=== PATIENT | male | born 1980 | race Hispanic/Latino ===

== ENCOUNTER 2024-03-23 10:05 | Emergency (ER) | payer SELFPAY ==
[2024-03-23 10:06] VITALS: BP 136/100; PULSE 86; RESP 14; TEMP 36.2; O2SAT 98; BMI 16.9
--- NOTE | 2024-03-23 10:30 | RAD_ITS ---
HISTORY: cough. TECHNIQUE: XR Chest 2 Views. COMPARISON: None. FINDINGS: CARDIOMEDIASTINAL BORDERS: Cardiac silhouette within normal limits in size. Mediastinal contour unremarkable with calcification of the aortic knob. LUNGS: Mild left suprahilar opacity. PLEURA: No pleural effusion or pneumothorax seen. OSSEOUS STRUCTURES: Mild degenerative change. RAD/Chest PA and Lateral IMPRESSION: Mild left suprahilar atelectasis or inflammation. Electronically Signed: Bianca Chavis MD at 11:14 EST ,
[2024-03-23] MEDS: 0.9% Normal Saline (1000mL) 1,000 ML 999 ML IV (10:45)
--- NOTE | 2024-03-23 10:58 | EX.ED.DYSGE1 ---
HPI History of Present Illness Chief Complaint: Hyperglycemia Informant: patient Narrative Narrative: Use of third-constitution party title i coordinator was utilized during this evaluation. 44-year-old male history of diabetes hypertension hyperlipidemia presenting to the emergency room with elevated blood sugar. Patient states he went to see his doctor yesterday because he has had pain in his throat as well as phlegm production for about 3 to 4 weeks. States his blood sugar was over 600 and was advised to come to emergency. He denies any fevers. He has been able to eat and drink. No change in voice. He does endorse some urinary frequency and increased thirst particularly in the mornings. He is a non-smoker. He states that his blood sugars are typically around 100. [facility] Medical History HTN (hypertension) Hyperlipemia Diabetes Home Medications ?Medication ?Instructions ?Recorded ?Last Taken ?Type amoxicillin 875 mg-potassium 875 mg PO Q12H #14 TABLETS 03/23/24 Unknown Rx clavulanate 125 mg tablet atorvastatin 20 mg tablet 20 mg PO QHS cholesterol 03/23/24 Unknown History azithromycin 250 mg tablet See Rx Instructions PO .COMPLEX #6 03/23/24 Unknown Rx (Zithromax Z-Jose) tabs flash glucose sensor (FreeStyle 03/23/24 Unknown History Kassie 2 Sensor kit) lisinopril 5 mg tablet 5 mg PO DAILY 03/23/24 Unknown History metformin 500 mg tablet,extended 1,000 mg PO BID 03/23/24 Unknown History release 24 hr Allergy/AdvReac Type Severity Reaction Status Date / Time No Known Allergies Allergy Verified 03/23/24 10:06 Surgical History Hx of appendectomy Social History household members: children current occupational status: employed Smoking Status: Never smoker ROS ROS ED Constitutional Constitutional ED: Denies chills, fever(s) or weight loss Eyes Eyes: Denies change in vision or diplopia ENT ENT ED: Reports sore throat and other Details: Increased thirst ; Denies ear pain or rhinorrhea Cardiovascular Cardiovascular: Denies chest pain, orthopnea, palpitations or racing heartbeat Respiratory/Chest Respiratory/Chest: Reports cough and sputum; Denies dyspnea or orthopnea Gastrointestinal Gastrointestinal: Denies abdominal pain, diarrhea, nausea or vomiting Genitourinary Genitourinary ED: Reports urinary frequency; Denies dysuria or hematuria Musculoskeletal Musculoskeletal: Denies arthralgias or myalgias Integumentary Denies abscess or rash Neurologic Neurologic: Denies headache(s) or weakness Psychiatric Psychiatric: Denies anxiety, depression, suicidal ideation or suicidal thoughts Endocrine Endocrinology: Denies polydipsia, polyphagia or polyuria Allergic/Immunologic Allergic/Immunologic ED: Denies mouth swelling, tongue swelling or urticaria EXAM Physical Exam Const Vital Signs: 03/23/24 10:06 03/23/24 10:47 03/23/24 12:06 Temperature 97.1 F L Temperature Source Temporal Pulse Rate 86 69 Respiratory Rate 14 18 Respiratory Effort Normal Non-Labored Respiratory Pattern Normal Blood Pressure 136/100 H Blood Pressure Mean 112 Pulse Ox 98 97 Oxygen Delivery Method Room Air Room Air Positive well nourished and well developed General Appearance ED: well developed and NAD HEENT Reports normocephalic, head/scalp atraumatic and moist mucous membranes HEENT Narrative: Voice sounds normal. No significant oral pharyngeal erythema or swelling is noted. No palatal petechiae. Handling secretions normally. Eyes PERRL and EOMs intact bilaterally Neck no lymphadenopathy, supple and no JVD Resp normal respiratory effort and clear to auscultation bilaterally Cardio regular rate, regular rhythm and no murmurs GI normal to inspection, nondistended, normoactive bowel sounds and non-tender Palpation: soft Back/Spine no CVA tenderness and normal ROM Extremity normal to inspection General Extremety ED: Negative for edema General Extremity: Negative for edema Neuro oriented x3 and CN's II-XII intact bilaterally Sensorium / Orientation: alert Motor Exam: strength 5/5 throughout Psych mental status grossly normal Mood & Affect: Negative for depressed or tearful Skin no rashes or lesions noted and no wounds MDM MDM MDM Narrative Medical decision making narrative: Differential diagnosis includes but not limited to pharyngitis pneumonia reflux dehydration electrolyte abnormality UTI My independent interpretation of the chest x-ray is possible upper lobe infiltrate on the left. His white count 6.6 hemoglobin 15.8 platelet count of 220. BMP shows a glucose of 327 anion gap of 7 CO2 28 sodium 134 potassium 3.9 LFTs show AST 49 ALT of 119 urinalysis with ketones but no overt infection. I do not see evidence of HONK. Clinically he appears hydrated and can to urged him to continue to drink plenty of fluids to prevent dehydration. I do wonder if the language barrier is playing a role and he is coughing up more phlegm than feeling like it is phlegm directly in the throat. I think that it is reasonable to cover him for pneumonia. Given his comorbidities with the diabetes we will use Augmentin and azithromycin. I do not see that this is a primary exudative pharyngitis. History & Record Review Discussion w/independent historian: Patient Lab Data Attestation: I reviewed the patient's lab results. Labs: Laboratory Results - last 24 hr 03/23/24 03/23/24 10:40 11:45 WBC 6.6 RBC 4.95 Hgb 15.8 Hct 43.7 MCV 88.3 MCH 31.9 MCHC 36.2 H RDW Std Deviation 35.9 RDW Coeff of Tima 11.3 L Plt Count 220 MPV 10.5 Immature Gran % (Auto) 0.800 Neut % (Auto) 63.1 Lymph % (Auto) 24.2 [place] % (Auto) 9.4 Eos % (Auto) 2.0 Baso % (Auto) 0.5 Absolute Neuts (auto) 4.2 Absolute Lymphs (auto) 1.60 Nucleated RBC % 0 Sodium 134 L Potassium 3.9 Chloride 98 Carbon Dioxide 28.0 Anion Gap 7 BUN 11 Creatinine 0.91 Estim Creat Clear Calc 77.86 Est GFR (MDRD) Af Amer 115 Est GFR (MDRD) Non-Af 95 BUN/Creatinine Ratio 12.0 Glucose 327 H Calcium 9.2 Total Bilirubin 1.00 Direct Bilirubin 0.25 AST 49 H ALT 119 H Alkaline Phosphatase 102 Total Protein 7.7 Albumin 3.9 Globulin 3.8 Urine Color Yellow Urine Clarity Clear Urine pH 6.0 Ur Specific [place] 1.020 Urine Protein 15 H Urine Glucose (UA) 1000 H Urine Ketones 150 A* Urine Occult Blood Negative Urine Nitrite Negative Urine Bilirubin 1 H Urine Urobilinogen 1 H Ur Leukocyte Esterase Negative Urine RBC 0 SEEN Urine WBC 0-5 SEEN Ur Squamous Epith Cells 0 SEEN Urine Bacteria 1+ Urine Mucus 0 SEEN Radiography Diagnostic Testing: Clinical Impression(s) from Imaging Studies Chest X-Ray 03/23/24 10:30 IMPRESSION: Mild left suprahilar atelectasis or inflammation. Electronically Signed: Bianca Chavis MD at 11:14 EST , Discharge Plan Triage Chief Complaint: Hyperglycemia ED Provider: Broderick Bustamante Dx/Rx/DC Orders Clinical Impression: Pharyngitis, Pneumonia, Hyperglycemia due to type 2 diabetes mellitus Instructions: ED Diabetic Hyperglycemia, ED Pneumonia (Adult) Prescriptions: New azithromycin [Zithromax Z-Jose] 250 mg tablet See Rx Instructions .ROUTE .COMPLEX Qty: 6 0RF Rx Instructions: For 250 mg dose pack: take 500 mg today (day 1), then 250 mg for 4 days (days 2-5) amoxicillin-pot clavulanate 875-125 mg tablet 875 mg PO Q12H Qty: 14 0RF No Action atorvastatin 20 mg tablet 20 mg PO QHS lisinopril 5 mg tablet 5 mg PO DAILY metformin 500 mg tablet extended release 24 hr 1,000 mg PO BID (DME) FreeStyle Kassie 2 Sensor Kit MISCELLANEOUS Patient Comments: USE TO CHECK BLOOD GLUCOSE, APPLY A NEW SENSOR EVERY 14 DAYS TO THE UPPER ARM. Primary Care Provider: Richar Griffin Referrals: Richar Griffin MD [Primary Care Provider] - 1 Week if not improving Print Language: Armenian Disposition Disposition: Home, Self Care Discharge Date/Time: 03/23/24 12:59
[2024-03-23 11:04] LABS: Absolute Neutrophil Count 4.2 X10^3/uL (2.0-7.7); Basophil# 0.03 X10^3/uL; Basophil% 0.5 % (0-1); Eosinophil# 0.13 X10^3/uL; Hematocrit 43.7 % (40-54); Hemoglobin 15.8 g/dL (13.0-16.5); Lymphocyte % 24.2 % (19-41); Mean Corp Hgb Conc 36.2 g/dL (32-36); Mean Corpuscular Hgb 31.9 pg (27.0-32.0); Mean Corpuscular Volume 88.3 fL (80-94); Mean Platelet Vol. 10.5 fl (6.2-12.0); Monocyte# 0.62 X10^3/uL; Monocyte% 9.4 % (0-10); NRBC Flagged by Analyzer 0 % (0-5); Neutrophil # 4.19 X10^3/uL (2.7-7.7); Neutrophil % 63.1 % (47-70); Platelet Count 220 K/mm3 (150-450); RBC Distribution Width CV 11.3 % (11.6-14.6); RBC Distribution Width SD 35.9 fl (35.1-43.9); Red Blood Count 4.95 M/mm3 (4.6-6.2); White Blood Count 6.6 K/mm3 (4.4-11.0)
[2024-03-23 11:06] LABS: AST(SGOT) 49 U/L (15-37); Alanine Aminotransfer ALT/SGPT 119 U/L (16-61); Albumin, Serum 3.9 g/dL (3.2-5.0); Alkaline Phosphatase 102 U/L (45-117); Anion Gap 7 (5-15); BUN 11 mg/dL (7-18); Bilirubin, Direct 0.25 mg/dL (0.00-0.30); Calcium,Total 9.2 mg/dL (8.5-10.1); Chloride 98 mmol/L (98-107); Creatinine, Serum 0.91 mg/dL (0.70-1.30); EST Glomerular Filtration Rate 95 mL/min (>60); Est Glom Filt Rate - Afr Amer 115 mL/min (>60); Estimated Creatinine Clearance 77.86 ml/min; Globulin 3.8 g/dL (2.2-4.2); Glucose 327 mg/dL (74-106); Potassium 3.9 mmol/L (3.5-5.1); Protein, Total 7.7 g/dL (6.4-8.2); Sodium Level 134 mmol/L (136-145)
[2024-03-23 11:53] LABS: Mucous, Urine 0 SEEN /hpf (<or=2+); Red Blood Cells-Urine 0 SEEN /hpf (0-5); Squamous Epithelial Cells - UA 0 SEEN /hpf (0-5)
[2024-03-23 12:06] VITALS: PULSE 69; RESP 18; O2SAT 97
[2024-03-23 12:11] LABS: Color, Urine Yellow (Yellow); Glucose, Dipstick 1000 mg/dl (Normal); Leukocyte Esterase-Dipstick Negative /ul (Negative); Nitrite-Dipstick Negative (Negative); Occult Blood-Urine Negative /ul (Negative); Protein-Dipstick 15 mg/dl (Negative); Urine Clarity Clear (Clear); Urine Urobilinogen 1 mg/dl (Normal)
[2024-03-23 12:14] LABS: Urine Bilirubin Dipstick 1 mg/dL (Negative)
[2024-03-23 12:16] LABS: Ketone-Dipstick 150 mg/dl (Negative)
[2024-03-23 12:19] LABS: Bacteria 1+ /hpf (None Seen); White Blood Cells 0-5 SEEN /hpf (0-5)
== END 2024-03-23 12:59 | disposition home or self-care (01) ==
PROVIDERS: Emergency Provider Emergency Medicine; PCP Family Medicine; Visit Provider Emergency Medicine
DX: J18.9 Pneumonia, unspecified organism (principal); E11.65 Type 2 diabetes mellitus with hyperglycemia; E78.5 Hyperlipidemia, unspecified; R35.0 Frequency of micturition; I10 Essential (primary) hypertension; Z79.899 Other long term (current) drug therapy; Z79.84 Long term (current) use of oral hypoglycemic drugs; J02.9 Acute pharyngitis, unspecified
CPT/HCPCS: 71046; 80048; 80076; 81001; 85025; 96360; 99283; J7030